=== PATIENT | female | born 1955 | race Caucasian/White ===

== ENCOUNTER 2016-06-02 15:40 | Emergency (ER) ==
--- NOTE | 2016-06-02 17:20 | PROVIDER DOCUMENTATION ---
HPI-Psychological Disorder - General Source: patient <Leslie Bensonmarcela Harris - Last Filed: 06/02/16 19:40> <Ranjit Kurtz - Last Filed: 06/02/16 22:52> - General Chief Complaint: General Adult Stated Complaint: "HAVENT BEEN FEELING LIKE MYSELF" Time Seen by Provider: 06/02/16 17:02 Allergies/Adverse Reactions: Patient Allergies Allergy/AdvReac Type Severity Reaction Status Date / Time No Known Allergies Allergy Verified 06/02/16 15:45 Home Medications: Home Medication List Medication Instructions Recorded Confirmed Last Taken Type Levothyroxine Sodium 25 mcg PO DAILY 06/02/16 06/02/16 Unknown History Lisinopril 40 mg PO DAILY 06/02/16 06/02/16 Unknown History - History of Present Illness-Psych Nature of Presenting Problem: 61 y/o WF c daughter and at bedside, c/o "not feeling like myself." Patient for the last 6 weeks, has been agressively cleaning the house repeatedly , only gets maybe 4 hours of sleep a night, lost 10 pounds in the process and fixates on the fact that she has infestations in her body or has been poisoned by the insecticides she is using. She has now begun to do this same cleaning to her mother's house. She has begun to develop depression, daughter states she left a suicide note today. History of depression, does not take medications for this. Reports begin very anxious and agitated (Faina Benson) Review of Systems - Adult - REVIEW OF SYSTEMS - ADULT Constitutional: reports: no symptoms reported. denies: chills, fever, fatique Eyes: reports: no symptoms reported. denies: blurred vision, double vision, eye pain Ears, Nose, Mouth & Throat: reports: no symptoms reported. denies: ear pain, nose pain, throat pain Cardiovascular: reports: no symptoms reported. denies: chest pain, palpitations Respiratory: reports: no symptoms reported. denies: cough, shortness of breath Gastrointestinal: reports: no symptoms reported. denies: abdominal pain, diarrhea, nausea, vomiting Genitourinary: reports: no symptoms reported. denies: dysuria, discharge, frequency Musculoskeletal: reports: no symptoms reported. denies: muscle aches Integumentary: reports: no symptoms reported. denies: rash Neurological: reports: no symptoms reported. denies: headache/migraines Psychiatric: reports: no symptoms reported Endocrine: reports: no symptoms reported Hematologic/Lymphatic: reports: no symptoms reported Allergic/Immunologic: reports: no symptoms reported All Other Systems: Reviewed and Negative <Faina Benson - Last Filed: 06/02/16 19:40> Past History - Adult - PAST MEDICAL HISTORY-ADULT Review of Records: reports: Old Records Reviewed, Nursing Assessment Review, Medications Reviewed Major Childhood Illnesses: reports: denies history Cardiovascular: reports: denies history Respiratory: reports: denies history Gastrointestinal: reports: denies history Obstetrical/Gynecological: reports: denies history Genitourinary: reports: denies history Musculoskeletal: reports: denies history Neurological: reports: denies history Endocrine/Immune: reports: denies history Other Conditions: reports: denies history - FAMILY HISTORY Family History: reviewed, not pertinent <Faina Benson - Last Filed: 06/02/16 19:40> Physical Exam-Psych Focus - Physical Exam-Psych Initial Vital Signs Reviewed: Yes Appearance: appropriate appearance, appropriate insight, neat, no apparent distress, no memory impairment Neurological: alert, normal mood/affect, calm Behavior/Eye Contact/Speech: cooperative, good eye contact, normal speech Thoughts/Hallucinations: tactile hallucinations, visual hallucinations HENMT: normocephalic/atraumatic, moist mucous membranes Neck: non-tender, full range of motion, supple, normal inspection Respiratory: chest non-tender, lungs clear, normal breath sounds, no pleuratic chest pain, no respiratory distress, no accessory muscle use. negative: respiratory distress, decreased breath sounds, accessory muscle use, crackles, rales, rhonchi, wheezing Cardiovascular: normal peripheral pulses, regular rate, rhythm Extremity: normal gait Integumentary: normal color, normal turgor, warm/dry <Faina Benson - Last Filed: 06/02/16 19:40> Progress - PSYCHIATRIC Medically clear for psych eval and/or transfer to [facility].: Yes - XRAY 1 XRAY: Bilateral XRAY Study: Chest Impression: Normal (NAD per radiology) - CT/MRI 1 CT Study: Head Impression: Normal (NAD per radiology) - CHANGE OF SHIFT REPORT (ED Provider) Report Given and Care Transferred to:: Dr. Kurtz Time of Transfer: 19:40 Items Pending: Physician Consult/Arrival (DW evaluation) Tentative Impression of Patient: stable <Faina Benson - Last Filed: 06/02/16 19:40> <Ranjit Kurtz - Last Filed: 06/02/16 22:52> - PLAN OF CARE/RESULTS Progress/Plan/Lab Results: Vital Signs Temp Pulse Resp BP Pulse Ox 06/02/16 15:42 98.1 F 94 H 16 163/80 99 No Known Allergies Allergy (Verified 06/02/16 15:45) Levothyroxine Sodium 25 mcg PO DAILY 06/02/16 Lisinopril 40 mg PO DAILY 06/02/16 Laboratory 06/02/16 06/02/16 06/02/16 17:57 17:57 17:57 WBC 8.46 RBC 5.15 Hgb 14.7 Hct 44.4 MCV 86.2 MCH 28.5 MCHC 33.1 RDW Std Deviation 13.0 Plt Count 258 MPV 10.1 Immature Gran % (Auto) 0.1 Neut % (Auto) 67.2 Lymph % (Auto) 24.5 Walsh % (Auto) 8.0 Eos % (Auto) 0.0 Baso % (Auto) 0.2 Immature Gran # (Auto) 0.01 Neut # (Auto) 5.68 Lymph # (Auto) 2.07 Walsh # (Auto) 0.68 H Eos # (Auto) 0.00 Baso # (Auto) 0.02 Sodium 139 Potassium 3.9 Chloride 102 Carbon Dioxide 23 L Anion Gap 14 BUN 10 Creatinine 0.9 Estimated GFR/1.73 m2 > 60 BUN/Creatinine Ratio 11 Glucose 95 Calculated Osmolality 276 Calcium 9.8 Magnesium 2.4 Total Bilirubin 0.30 AST 18 ALT 19 Alkaline Phosphatase 103 Total Protein 7.7 Albumin 4.7 Globulin 3.0 Albumin/Globulin Ratio 2.0 TSH 2.83 Free T4 1.71 H Urine Source Urine Color Urine Clarity Urine pH Ur Specific Hewitt Urine Protein Urine Ketones Urine Blood Urine Nitrite Urine Bilirubin Urine Urobilinogen Urine Microscopic RBC Urine WBC Urine Microscopic WBC Ur Epithelial Cells Urine Bacteria Urine Glucose Urine Opiates Screen Ur Oxycodone Screen Urine Methadone Screen Ur Barbituates Screen Ur Tricyclics Screen Ur Phencyclidine Scrn Ur Amphetamines Screen U Methamphetamines Scrn Urine MDMA Screen U Benzodiazepines Scrn Urine Cocaine Screen U Cannabinoids Screen 06/02/16 06/02/16 17:30 17:30 WBC RBC Hgb Hct MCV MCH MCHC RDW Std Deviation Plt Count MPV Immature Gran % (Auto) Neut % (Auto) Lymph % (Auto) Walsh % (Auto) Eos % (Auto) Baso % (Auto) Immature Gran # (Auto) Neut # (Auto) Lymph # (Auto) Walsh # (Auto) Eos # (Auto) Baso # (Auto) Sodium Potassium Chloride Carbon Dioxide Anion Gap BUN Creatinine Estimated GFR/1.73 m2 BUN/Creatinine Ratio Glucose Calculated Osmolality Calcium Magnesium Total Bilirubin AST ALT Alkaline Phosphatase Total Protein Albumin Globulin Albumin/Globulin Ratio TSH Free T4 Urine Source CLEAN CATCH Urine Color YELLOW Urine Clarity CLEAR Urine pH 6.5 Ur Specific Hewitt 1.005 Urine Protein NEGATIVE Urine Ketones NEGATIVE Urine Blood NEGATIVE Urine Nitrite NEGATIVE Urine Bilirubin NEGATIVE Urine Urobilinogen NORMAL Urine Microscopic RBC Not Reportable Urine WBC 1+ A Urine Microscopic WBC <10 Ur Epithelial Cells <10 Urine Bacteria 1+ Urine Glucose NEGATIVE Urine Opiates Screen NONE DETECTED Ur Oxycodone Screen NONE DETECTED Urine Methadone Screen NONE DETECTED Ur Barbituates Screen NONE DETECTED Ur Tricyclics Screen NONE DETECTED Ur Phencyclidine Scrn NONE DETECTED Ur Amphetamines Screen NONE DETECTED U Methamphetamines Scrn NONE DETECTED Urine MDMA Screen NONE DETECTED U Benzodiazepines Scrn NONE DETECTED Urine Cocaine Screen NONE DETECTED U Cannabinoids Screen NONE DETECTED Orders Category Date Time Status CHEST-2 VIEWS [RAD] Stat Exams 06/02/16 17:13 Draft HEAD W/O CONTRAST [CT] Stat Exams 06/02/16 17:13 Draft CBC WITH ELECTRONIC DIFF [HEME] Stat Lab 06/02/16 17:57 Completed COMPREHENSIVE METABOLIC PANEL [CHEM] Stat Lab 06/02/16 17:57 Completed FOLATE Stat Lab 06/02/16 17:57 Received FREE T4 Stat Lab 06/02/16 17:57 Results MAGNESIUM [CHEM] Stat Lab 06/02/16 17:57 Completed RPR [SERO] Stat Lab 06/02/16 17:57 Received TSH Stat Lab 06/02/16 17:57 Results UDS [URINE DRUG SCREEN PL] Stat Lab 06/02/16 17:[address] W/POSS RFLX CULT [URINALYSIS] Stat Lab 06/02/16 17:30 Completed URINE CULTURE [RM] Routine Lab 06/02/16 18:12 Ordered VITAMIN B12 Stat Lab 06/02/16 17:57 Results EKG [EKG] Stat Ther 06/02/16 17:13 Draft (Faina Benson) - PSYCHIATRIC Psych patient progress: DW paged and report given @ 1900 (Faina Benson) Departure - Departure Certified Medical Emergency: Emergent <Faina Benson - Last Filed: 06/02/16 19:40> - Departure Time of Disposition Order: 22:50 Certified Medical Emergency: Emergent <Ranjit Kurtz - Last Filed: 06/02/16 22:52> - Departure DIAGNOSIS: Hallucination Psychosis Qualifiers: Psychosis type: unspecified psychosis type Qualified Code(s): F29 - Unspecified psychosis not due to a substance or known physiological condition Disposition: HOME 01 Condition: Stable Referrals: None,PCP [Primary Care Provider] - Attestation - Physician/ KIMBERLY Attestation Patient care was provided by Advanced Practice Provider:: Yes Advanced Practice Provider:: Faina Benson Advanced Practice Provider documentation review:: The Mid-level provider documentation, treatment plan and medical decision making was reviewed by the physician who agrees with all treatment and medical decision making by the MLP. <Faina Benson - Last Filed: 06/02/16 19:40> Physician Attestation
--- NOTE | 2016-06-02 17:48 | Diag Imaging Result Document ---
PROCEDURE NAME: HEAD W/O CONTRAST - 06/02/[address]: COMPARISON: None. FINDINGS: The ventricles and sulci are normal in size and contour. There is no mass, hemorrhage, or evidence of acute ischemia. The bony calvaria is intact. The visualized paranasal sinuses and mastoid air cells are clear. IMPRESSION: Negative head CT.
[2016-06-02 17:58] LABS: URINE SOURCE CLEAN CATCH
--- NOTE | 2016-06-02 17:59 | EKG Report ---
Test Performed on : 06/02/2016 5:48:26 PM Test Reason : COURTCLEARANCE Blood Pressure : / mmHG Vent. Rate : 084 BPM Atrial Rate : 084 BPM P-R Int : 132 ms QRS Dur : 078 ms QT Int : 386 ms P-R-T Axes : 054 064 051 degrees QTc Int : 456 ms Sinus rhythm. with occasional premature ventricular complexes. Otherwise normal ECG No previous ECGs available Unconfirmed Result
--- NOTE | 2016-06-02 17:59 | Diag Imaging Result Document ---
PROCEDURE NAME: CHEST-2 VIEWS - 06/02/2016 CHEST X-RAY 2 VIEWS: COMPARISON: None. FINDINGS: The lungs are normally expanded and clear. Heart size and mediastinal contours are normal. No pneumothorax or pleural effusion. IMPRESSION: Negative exam.
[2016-06-02 18:03] LABS: MANUAL DIFF NEEDED? NO
[2016-06-02 18:07] LABS: BASO% 0.2 % (0.0-0.8); HEMATOCRIT 44.4 % (37.0-47.0); HEMOGLOBIN 14.7 g/dL (12.0-16.0); IMM GRAN# 0.01 X1000 (0.0-0.04); IMM GRAN% 0.1 % (0.0-0.5); LYMPH# 2.07 X1000 (1.2-3.4); LYMPH% 24.5 % (20.5-51.1); MCH 28.5 PG (27-31); MCHC 33.1 g/dL (33-37); MCV 86.2 FL (81-99); MONO# 0.68 X1000 (0.11-0.59); MPV 10.1 FL (7.4-10.4); NEUT% 67.2 % (42.2-75.2); PLT 258 X1000 (130-400); RBC 5.15 XMIL (4.2-5.4)
--- NOTE | 2016-06-02 18:09 | ED EKG INTERP ---
EKG Interpretation - EKG Time of EKG reading by physician:: 17:48 EKG Read and Signed by:: Kira Bush EKG Interpretation (*Must complete 3 of following elements*): Normal Rate: 84 Rhythm: sinus rhythm with occasional premature ventricular complexes Attestation - Scribe Verification/Attestation Scribe:: Britany Ward Acting as Scribe for:: Kira Bush Scribe documention review:: This chart was documented by a scribe and accurately reflects the service the provider performed and the decisions made by the provider.
[2016-06-02 18:12] LABS: BILIRUBIN URINE NEGATIVE (NEGATIVE); BLOOD URINE NEGATIVE (NEGATIVE); CLARITY CLEAR (CLEAR); COLOR YELLOW; GLUCOSE URINE NEGATIVE (NEGATIVE); LEUKOCYTES URINE 1+ (NEGATIVE); NITRITE URINE NEGATIVE (NEGATIVE); PH URINE 6.5; PROTEIN URINE NEGATIVE (NEGATIVE); SP GRAVITY URINE 1.005; URINE CULTURE PL NEEDED? YES; URINE EPITHELIAL CELLS <10 /HPF (<10); URINE WBC <10 /HPF (<10); UROBILINOGEN URINE NORMAL
[2016-06-02 18:41] LABS: AGAP 14; ALBUMIN 4.7 g/dL (3.5-5.0); ALKALINE PHOSPHATASE 103 U/L (32-104); BUN 10 mg/dL (8-22); CALCIUM 9.8 mg/dL (8.8-10.2); CHLORIDE 102 mmol/L (98-107); COSMO 276; GOT 18 U/L (10-30); GPT 19 U/L (10-36); MAGNESIUM 2.4 mg/dL (1.5-2.7); POTASSIUM 3.9 mmol/L (3.5-5.1); SODIUM 139 mmol/L (136-145); TCO2 23 mmol/L (25-35); TOTAL PROTEIN 7.7 g/dL (6.3-8.3)
[2016-06-02 18:50] LABS: FREE T4 1.71 ng/dL (0.93-1.70)
[2016-06-02 19:15] LABS: UR AMPHETAMINES QUAL NONE DETECTED (NONE DETECT); UR BARBITUATES QUAL NONE DETECTED (NONE DETECT); UR BENZODIAZEPIN QUAL NONE DETECTED (NONE DETECT); UR CANNABINOIDS QUAL NONE DETECTED (NONE DETECT); UR COCAINE QUAL NONE DETECTED (NONE DETECT); UR MDMA QUAL NONE DETECTED (NONE DETECT); UR METHADONE QUAL NONE DETECTED (NONE DETECT); UR METHAMPHETAMINE QUAL NONE DETECTED (NONE DETECT); UR OPIATES QUAL NONE DETECTED (NONE DETECT); UR OXYCODONE QUAL NONE DETECTED (NONE DETECT); UR PCP QUAL NONE DETECTED (NONE DETECT); UR TCA QUAL NONE DETECTED (NONE DETECT)
[2016-06-02] MEDS ORDERED: XANAX ONE (22:30)
[2016-06-02] MEDS ORDERED: XANAX PO ONE (22:37)
[2016-06-02 23:06] VITALS: BP 159/75
== END 2016-06-02 23:04 | disposition home or self-care (01) ==
LOC: P.ED 15:40
DX: R44.2 Other hallucinations (principal); R44.1 Visual hallucinations; F29 Unspecified psychosis not due to a substance or known physiological condition; R45.1 Restlessness and agitation; Z79.899 Other long term (current) drug therapy
CPT/HCPCS: 70450; 71020; 80053; 80305; 81001; 82607; 82746; 83735; 84439; 84443; 85025; 86592; 87088; 93005